=== PATIENT | female | born 1975 | race Caucasian/White ===

== ENCOUNTER 2018-05-11 07:30 | Inpatient (IN) | payer OTHER ==
[~2018-05-11] VITALS: Ht 162.6 cm; Wt 78.5 kg
[2018-05-11] MEDS ORDERED: COREG PO (08:46)
[2018-05-11] MEDS ORDERED: ENTRESTO 24 MG1 EACH PO (08:47)
[2018-05-11] MEDS ORDERED: SYNTHROID137 MCG PO (08:47)
[2018-05-11] MEDS ORDERED: DIGOXIN0.25 MG/5 PO (08:48)
[2018-05-11] MEDS ORDERED: [UNRECOGNIZED DRUG - OTHER] PO (08:48)
[2018-05-11] MEDS ORDERED: FOLGARD TABLET1 EACH PO (08:49)
[2018-05-11] MEDS ORDERED: FOLIC ACID1 MG PO (08:49)
[2018-05-11] MEDS ORDERED: LAXIS PO (08:49)
[2018-05-11] MEDS ORDERED: COUMADIN5 MG PO (08:50)
[2018-05-17] MEDS ORDERED: COREG CR20 MG PO (08:48)
[2018-05-17] MEDS ORDERED: ALDACTONE25 MG PO (08:49)
[2018-05-17] MEDS ORDERED: HYDROCHLOROTHIA25 MG PO (08:51)
[2018-05-18] MEDS ORDERED: ULTRACET PO (09:11)
[2018-05-18] MEDS ORDERED: COLACE100 MG PO (09:11)
[2018-05-18] MEDS ORDERED: AMOXICILLIN500 M1 PO (09:12)
== END 2018-05-18 10:06 | DRG 740 ==
LOC: OB/GYN 05-17 07:30 → SURH 05-17 07:30 → O/R 05-17 08:30 → OB/GYN 05-17 18:49 → SURH 05-17 19:15 → OB/GYN 05-18 10:06
PROVIDERS: Obstetrics & Gynecology Gynecologic Oncology
PROC: 0UT74ZZ Resection of Bilateral Fallopian Tubes, Percutaneous Endoscopic Approach (ICD-10-PCS; 2018-05-17)
PROC: 0UT94ZZ Resection of Uterus, Percutaneous Endoscopic Approach (ICD-10-PCS; principal; 2018-05-17 19:15)
DX: D06.7 Carcinoma in situ of other parts of cervix (principal); I42.8 Other cardiomyopathies; N80.0 Endometriosis of uterus